=== PATIENT | male | born 1970 | race African-American/Black ===

== ENCOUNTER 2016-09-04 14:08 | Inpatient (IN) ==
[2016-09-04] MEDS ORDERED: NS 1,000 ML IV ONE (14:20)
[2016-09-04] MEDS ORDERED: BOOSTRIX VACCINE IM ONE (14:25)
[2016-09-04 14:30] LABS: MANUAL DIFF NEEDED? NO
[2016-09-04 14:32] LABS: BASO% 0.5 % (0.0-0.8); EOS# 0.07 X1000 (0.0-0.7); EOS% 1.1 % (0.0-10.0); HEMATOCRIT 38.6 % (42.0-52.0); HEMOGLOBIN 12.9 g/dL (14.0-18.0); LYMPH# 2.28 X1000 (1.2-3.4); LYMPH% 35.7 % (20.5-51.1); MCH 30.1 PG (27-31); MCHC 33.4 g/dL (33-37); MONO# 0.71 X1000 (0.11-0.59); MONO% 11.1 % (1.7-9.3); MPV 11.5 FL (7.4-10.4); NEUT% 51.6 % (42.2-75.2); PLT 195 X1000 (130-400); RBC 4.29 XMIL (4.7-6.1)
[2016-09-04] MEDS ORDERED: ATIVAN IV ONE ×2 (14:42→15:22)
[2016-09-04 14:52] LABS: INR 1.27; PROTIME 13.5 Seconds (9.2-11.7)
[2016-09-04 15:05] LABS: ALLEN TEST YES; BE -2.3 mmoll (-3.0-3.0); BLOOD TYPE ARTERIAL; DRAW SITE R RADIAL; O2(CT) 14.5 mL/dL (15.0-23.0); PCO2(98.6) 30 mmHg (35-45); PO2(98.6) 68 mmHg (60-100); SAMPLE BLOOD; SAO2 96.3 % (95.0-100.0); THB 11.2 g/dL (11.5-17.4); pH(98.6) 7.45 (7.35-7.45)
[2016-09-04 15:07] LABS: MODALITY ROOM AIR
--- NOTE | 2016-09-04 15:09 | Diag Imaging Result Doc PS360 ---
EXAM: CHEST-PORTABLE HISTORY: AMS TECHNIQUE: Portable upright AP COMPARISON: 04/20/2016 FINDINGS: The lungs are well expanded. The heart is not enlarged. No pneumonia. No pleural effusions identified. The vessels are not distended. IMPRESSION: Negative chest Electronically signed by Danny Valdes 09/04/2016 3:07 PM
[2016-09-04 15:11] LABS: PTT 83.7 Seconds (22.0-36.0)
[2016-09-04 15:20] LABS: AGAP 31; ALBUMIN 4.4 g/dL (3.5-5.0); ALKALINE PHOSPHATASE 125 U/L (32-122); BUN 8 mg/dL (8-22); CALCIUM 9.3 mg/dL (8.8-10.2); CHLORIDE 93 mmol/L (98-107); CK PROFILE 332 U/L (24-204); COSMO 274; GOT 253 U/L (10-34); GPT 133 U/L (10-44); POTASSIUM 3.4 mmol/L (3.5-5.1); SODIUM 138 mmol/L (136-145); TCO2 14 mmol/L (25-35); TOTAL PROTEIN 9.7 g/dL (6.3-8.3)
[2016-09-04 15:43] LABS: CK INDEX 0.5 (0.0-2.5)
[2016-09-04] MEDS ORDERED: M.V.I.-12 10 ML, FOLIC ACID 1 MG, MAGNESIUM SULFATE 1 GM, THIAMINE 100 MG in NS 1,000 ML IV ONE (16:31)
[2016-09-04 16:46] LABS: URINE CULTURE NEEDED? NO; URINE MICRO REVIEW NEEDED? NO; URINE SOURCE CLEAN CATCH
--- NOTE | 2016-09-04 16:53 | Diag Imaging Result Doc PS360 ---
EXAM: HEAD/C-SPINE W/O CONTRAST HISTORY: Fall TECHNIQUE: COMPARISON: None. FINDINGS: Head: Motion degrades image quality. No parenchymal hemorrhage. No epidural or subdural hematoma. No subarachnoid hemorrhage. No skull fracture. No hydrocephalus. No sinus opacification. Cervical spine: There is a large amount of motion and the exam is extremely suboptimal. There are degenerative changes in the mid and lower cervical spine. There is reversal of the normal curvature. No precervical soft tissue swelling. No fracture is identified. IMPRESSION: A large amount of motion degrades image quality. No injury to the head or cervical spine identified. Electronically signed by Danny Valdes 09/04/2016 4:51 PM
[2016-09-04 16:54] LABS: BILIRUBIN URINE NEGATIVE (NEGATIVE); BLOOD URINE SMALL (NEGATIVE); COLOR YELLOW; GLUCOSE URINE NEGATIVE (NEGATIVE); LEUKOCYTES URINE NEGATIVE (NEGATIVE); NITRITE URINE NEGATIVE (NEGATIVE); PH URINE 6.5; PROTEIN URINE 50 mg/dL (NEGATIVE); SP GRAVITY URINE 1.018; TURBIDITY URINE CLEAR (CLEAR); UR EPITHELIAL CELLS <10 /HPF (<10); URINE BACTERIA NEGATIVE /HPF; URINE RBC <10 /HPF (<10); URINE WBC <10 /HPF (<10); UROBILINOGEN URINE 8 mg/dL (NORMAL)
--- NOTE | 2016-09-04 16:57 | PROVIDER DOCUMENTATION ---
This chart was entered by Analia Tony Scribe, acting as scribe for Antonio Matias MD. HPI-Head Injury - General Chief Complaint: Head Injury Stated Complaint: Syncope Time Seen by Provider: 09/04/16 14:12 Source: patient, EMS Allergies/Adverse Reactions: Patient Allergies Allergy/AdvReac Type Severity Reaction Status Date / Time No Known Allergies Allergy Verified 09/04/16 14:21 Home Medications: Home Medication List Medication Instructions Recorded Confirmed Last Taken Type NK [No Home Medications] 09/04/16 09/04/16 Unknown History - History of Present Illness-Head Injury Nature of Presenting Problem: 46 yo M presents to the ER with complaint of syncopal episode where he fell and hit hit head on a glass table. EMS reports pt lying on back on the floor, then noted seizure like activity, denies any post-ictal phase. Pt has some minor puncture wounds to L side of head. Pt denies any pain. Other injuries associated with incident:: reports: head Quality of Pain: reports: none Onset/Duration: reports: just prior to arrival Method of Injury: reports: fell (syncope) Injury Associated Symptoms: reports: puncture wound Locality of Occurance: Home Review of Systems - Adult - REVIEW OF SYSTEMS - ADULT Constitutional: denies: chills, fever Eyes: reports: no symptoms reported Ears, Nose, Mouth & Throat: reports: no symptoms reported Cardiovascular: denies: chest pain, palpitations Respiratory: denies: cough, shortness of breath Gastrointestinal: reports: no symptoms reported Genitourinary: reports: no symptoms reported Musculoskeletal: reports: no symptoms reported Integumentary: reports: no symptoms reported Neurological: reports: syncope, tremors Psychiatric: reports: no symptoms reported Endocrine: reports: no symptoms reported Hematologic/Lymphatic: reports: no symptoms reported Allergic/Immunologic: reports: no symptoms reported All Other Systems: Reviewed and Negative Past History - Adult - PAST MEDICAL HISTORY-ADULT Review of Records: reports: Nursing Assessment Review, Medications Reviewed Respiratory: reports: asthma - PRIOR SURGERIES/PROCEDURES Surgical/Procedure History: reports: none - IMMUNIZATION STATUS Childhood Immunizations: See Nurse Assessment Flu Vaccine: See Nurse Assessment - SOCIAL HISTORY Smoking: cigarettes Provider spent 3-5 mins advising pt. on dangers of tobacco.: Discussed manners to quit use, and f/u contacts for add'l counseling. Physical Exam- Neurological - Physical Exam-Neuro Initial Vital Signs Reviewed: Yes General Appearance: alert, no apparent distress Eye Exam: bilateral eye: normal inspection, PERRL, EOMI HENMT: normocephalic/atraumatic, normal ENT inspection, TMs normal, pharynx normal Head Injury: other (minor puncture wounds to L side of head). 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4 H Plt Count 195 MPV 11.5 H Immature Gran % (Auto) 0.0 Neut % (Auto) 51.6 Lymph % (Auto) 35.7 Chester % (Auto) 11.1 H Eos % (Auto) 1.1 Baso % (Auto) 0.5 Immature Gran # (Auto) 0.00 Neut # (Auto) 3.30 Lymph # (Auto) 2.28 Chester # (Auto) 0.71 H Eos # (Auto) 0.07 Baso # (Auto) 0.03 PT INR PTT (Actin FS) Specimen Type Sample Site pH pCO2 pO2 HCO3 Base Excess Oxyhemoglobin ABG O2 Sat (Calculated) ABG O2 Saturation ABG Carboxyhemoglobin ABG Methemoglobin Ghassan Test A-a O2 Difference Total Hemoglobin Lactate Blood Gas Modality FiO2 % Sodium 138 Potassium 3.4 L Chloride 93 L Carbon Dioxide 14 L Anion Gap 31 BUN 8 Creatinine 1.0 Estimated GFR/1.73 m2 > 60 BUN/Creatinine Ratio 8 Glucose 105 H Calculated Osmolality 274 Calcium 9.3 Total Bilirubin 0.70 AST 253 H ALT 133 H Alkaline Phosphatase 125 H Creatine Kinase 332 H Creatine Kinase Index 0.5 CK-MB (CK-2) 1.60 Troponin T Total Protein 9.7 H Albumin 4.4 Globulin 5.3 Albumin/Globulin Ratio 0.8 Urine Source Plasma/Serum Ethyl Alc 29 H 09/04/16 09/04/16 09/04/16 14:00 14:00 14:55 WBC RBC Hgb Hct MCV MCH MCHC RDW Std Deviation Plt Count MPV Immature Gran % (Auto) Neut % (Auto) Lymph % (Auto) Chester % (Auto) Eos % (Auto) Baso % (Auto) Immature Gran # (Auto) Neut # (Auto) Lymph # (Auto) Chester # (Auto) Eos # (Auto) Baso # (Auto) PT 13.5 H INR 1.27 PTT (Actin FS) 83.7 H Specimen Type ARTERIAL Sample Site R RADIAL pH 7.45 pCO2 30 L pO2 68 HCO3 23.0 Base Excess -2.3 Oxyhemoglobin 91.7 L ABG O2 Sat (Calculated) 14.5 L ABG O2 Saturation 96.3 ABG Carboxyhemoglobin 3.70 H ABG Methemoglobin 1.0 Ghassan Test YES A-a O2 Difference 44.0 Total Hemoglobin 11.2 L Lactate 5.40 H* Blood Gas Modality ROOM AIR FiO2 % 21.0 Sodium Potassium Chloride Carbon Dioxide Anion Gap BUN Creatinine Estimated GFR/1.73 m2 BUN/Creatinine Ratio Glucose Calculated Osmolality Calcium Total Bilirubin AST ALT Alkaline Phosphatase Creatine Kinase Creatine Kinase Index CK-MB (CK-2) Troponin T < 0.010 Total Protein Albumin Globulin Albumin/Globulin Ratio Urine Source Plasma/Serum Ethyl Alc 09/04/16 16:40 WBC RBC Hgb Hct MCV MCH MCHC RDW Std Deviation Plt Count MPV Immature Gran % (Auto) Neut % (Auto) Lymph % (Auto) Chester % (Auto) Eos % (Auto) Baso % (Auto) Immature Gran # (Auto) Neut # (Auto) Lymph # (Auto) Chester # (Auto) Eos # (Auto) Baso # (Auto) PT INR PTT (Actin FS) Specimen Type Sample Site pH pCO2 pO2 HCO3 Base Excess Oxyhemoglobin ABG O2 Sat (Calculated) ABG O2 Saturation ABG Carboxyhemoglobin ABG Methemoglobin Ghassan Test A-a O2 Difference Total Hemoglobin Lactate Blood Gas Modality FiO2 % Sodium Potassium Chloride Carbon Dioxide Anion Gap BUN Creatinine Estimated GFR/1.73 m2 BUN/Creatinine Ratio Glucose Calculated Osmolality Calcium Total Bilirubin AST ALT Alkaline Phosphatase Creatine Kinase Creatine Kinase Index CK-MB (CK-2) Troponin T Total Protein Albumin Globulin Albumin/Globulin Ratio Urine Source CLEAN CATCH Plasma/Serum Ethyl Alc Orders Category Date Time Status Cardiac Monitoring DIRECTED Care 09/04/16 14:20 Active Finger Stick Blood Sugar (ED) DIRECTED Care 09/04/16 14:20 Active [place]ay Cath Insertion ORDERED Care 09/04/16 16:47 Active Saline Loc NOW Care 09/04/16 14:20 Active Wound Care DIRECTED Care 09/04/16 14:25 Active CHEST-PORTABLE [RAD] Stat Exams 09/04/16 14:20 Completed HEAD/C-SPINE W/O CONTRAST [CT] Stat Exams 09/04/16 14:24 Taken ABG [RESP] Routine Lab 09/04/16 14:55 Completed CBC WITH ELECTRONIC DIFF [HEME] Stat Lab 09/04/16 14:00 Completed CK PROFILE [SP CHEM] Stat Lab 09/04/16 14:00 Completed COMPREHENSIVE METABOLIC PANEL [CHEM] Stat Lab 09/04/16 14:00 Completed ETOH [ALCOHOL BLOOD] Stat Lab 09/04/16 14:00 Completed PROTIME WITH INR [COAG] Stat Lab 09/04/16 14:00 Completed PTT [COAG] Stat Lab 09/04/16 14:00 Completed TROPONIN T Stat Lab 09/04/16 14:00 Completed URINALYSIS W/POSS RFLX CULT-1 [URINALYSIS] Stat Lab 09/04/16 16:40 Results URINE DRUG SCREEN Stat Lab 09/04/16 16:40 Received 0.9% Sodium Chloride Inj [Ns] 1,000 ml Med 09/04/16 14:20 Discontinued IV 999 mls/hr Diph,Pertuss(Acell),Tet Vac/Pf [Boostrix Vaccine] Med 09/04/16 14:25 Discontinued 0.5 ml IM .ONCE ONE Lorazepam [Ativan] Med 09/04/16 14:42 Discontinued 1 mg IV NOW ONE Lorazepam [Ativan] Med 09/04/16 15:22 Discontinued 1 mg IV NOW ONE Mvi [M.v.i.-12] 10 ml Med 09/04/16 16:31 Active Folic Acid 1 mg Magnesium Sulfate 1 gm Thiamine 100 mg 0.9% Sodium Chloride Inj [Ns] 1,000 ml IV NOW Pulse Oximetry Stat Oth 09/04/16 14:20 Active EKG [EKG] Stat Ther 09/04/16 14:20 Ordered Result Diagrams: 09/04/16 14:00 09/04/16 14:00 - REASSESSMENT Reassessment #1 Time Reassessed: 16:51 Status: improving (Pt is still shaking after 2mg of Ativan IV. Family reports he drinks ETOH every day for 20 years and his last drinking was a couple of day ago. Pt had foma in his mouth in his mouth when he fell and hit his head on a table. There is a concern for ETOH withdraw caused seizure.) - EKG 1 Time of EKG reading by physician:: 14:07 EKG Read and Signed by:: Antonio Matias EKG Interpretation (*Must complete 3 of following elements*): Abnormal Rate: 119 Rhythm: sinus tach with short [place] Lucas: normal [place] Interval: shortened ST Wave: non-specific ST changes - XRAY 1 XRAY Study: Chest Impression: Normal (negative chest, per radiologist) - CONSULTS/PCP/HOSPITALIST Notification #1 *Consult/PCP/Hospitalist*: Hopsitalist Time Discussed: 16:53 Consult Disposition: Admit Departure - Departure Date of Disposition Decision: 09/04/16 Time of Disposition Decision: 16:55 DIAGNOSIS: Alcohol withdrawal, Seizure, Head injury Disposition: ADMITTED INPATIENT 09 Certified Medical Emergency: Emergent Condition: Stable - Critical Care Note This patient required my direct & personal management of CC.: No This chart was documented by the indicated scribe, (Analia Tony Scribe) and accurately reflects the services I performed and decisions made by me, Antonio Matias MD, as attested by the provider's signature.
[2016-09-04 17:00] LABS: UR AMPHETAMINES QUAL NONE DETECTED (NONE DETECT); UR BARBITUATES QUAL NONE DETECTED (NONE DETECT); UR BENZODIAZEPIN QUAL NONE DETECTED (NONE DETECT); UR CANNABINOIDS QUAL NONE DETECTED (NONE DETECT); UR COCAINE QUAL NONE DETECTED (NONE DETECT); UR METHADONE QUAL NONE DETECTED (NONE DETECT); UR OPIATES QUAL NONE DETECTED (NONE DETECT); UR OXYCODONE QUAL NONE DETECTED (NONE DETECT); UR PCP QUAL NONE DETECTED (NONE DETECT)
[2016-09-04] MEDS ORDERED: ZOFRAN IV PRN (18:13)
[2016-09-04] MEDS ORDERED: TYLENOL PO PRN (18:13)
--- NOTE | 2016-09-04 18:26 | HISTORY AND PHYSICAL ---
PRIMARY CARE PHYSICIAN: None. CHIEF COMPLAINT: Patient was found unresponsive, seizing. HISTORY OF PRESENT ILLNESS: This is a 46-year-old male with a history of alcoholism, who was brought to the emergency department because he was found seizing. Patient not able to provide any more information and there is no family in the room. Apparently as per ER records, patient was found unresponsive, having a seizure so he was brought immediately to the emergency department. Here he was he was given Lorazepam and the seizure was controlled. According to the ER doctor apparently this patient is a heavy drinker. The last time he had a drink was 2 days ago. The patient is going to be admitted to the hospital for further evaluation and treatment for suspicion for alcohol withdrawal. PAST MEDICAL HISTORY: Unremarkable. PAST SURGICAL HISTORY: None. ALLERGIES: Patient is not allergic to anything. SOCIAL HISTORY: Patient has been a drinker for a while. He does not remember exactly how long he has been drinking but he reports that he drinks between 6 and 10 beers daily. He reports smoking between half and 1 pack per day for many years. He denies using any kind of drugs, although he reports that sometimes he smokes some weed. He lives with his son, who is a 17-year-old. REVIEW OF SYSTEMS: Not possible to obtain because of the mental status of the patient. PHYSICAL EXAMINATION: VITAL SIGNS: Temperature 98.9 degrees, heart rate 99, respiratory rate 24, blood pressure 126/96, O2 saturation 97% on room air. GENERAL: This is a 46-year-old male, looking definitely older than his age, lying in bed, in no acute distress. HEENT: Head is normocephalic, atraumatic. Anicteric sclerae and pale conjunctivae. Mucous membranes dry with some gingival hemorrhage. NECK: Supple. No JVD noted. No carotid bruits. No lymphadenopathy. No thyromegaly. CARDIOVASCULAR: S1, S2 heard. Tachycardic. No murmurs, gallops, or rubs. Regular rate and rhythm. RESPIRATORY: Clear bilaterally to auscultation. No work of breathing or using accessory muscles. ABDOMEN: Soft, nontender to palpation. Bowel sounds present. No organomegaly. No signs of peritoneal irritation. NEUROLOGICAL: The patient is confused but oriented in person. Moves 4 extremities spontaneously. LABORATORY DATA: White cell count 6.39, hemoglobin 12.9, hematocrit 38.6, platelets 195,000. INR is 1.27. ABG showing a pH of 7.45, pCO2 30, PO2 68, lactate 5.4. BMP unremarkable. AST 253, AST 133, alkaline phosphatase 125. UDS reports an alcohol of 29. ASSESSMENT AND PLAN: 1. Toxic encephalopathy. 2. Alcohol withdrawal. 3. Chronic alcohol abuse. PLAN: The patient is being admitted to the hospital because of suspicion for alcohol withdrawal with episode of seizure. The patient reports he had this problem before. We actually do not know if this patient had this problem before because he is not a good historian right now. In any case, we are going to transfer him to the intensive care unit. We are going to start him on Lorazepam IV p.r.n. seizures. At this point because this patient is not completely with it, we think that this patient is not a candidate for any oral medication. We will provide also IV fluid supplementation with thiamine and folate. We will see how this patient does tomorrow. Further recommendations to follow according to the clinical situation of the patient. cc: Silvestre Perez MD
[2016-09-04] MEDS: NS 1,000 ML IV SCH (20:06)
[2016-09-04] MEDS: PROTONIX IV SCH (20:07)
[2016-09-04] MEDS: ATIVAN IV PRN (20:15)
[2016-09-04 20:28] LABS: MANUAL DIFF NEEDED? NO
[2016-09-04 20:45] LABS: BASO% 0.6 % (0.0-0.8); EOS# 0.04 X1000 (0.0-0.7); EOS% 0.8 % (0.0-10.0); HEMATOCRIT 31.7 % (42.0-52.0); HEMOGLOBIN 10.8 g/dL (14.0-18.0); LYMPH# 1.21 X1000 (1.2-3.4); LYMPH% 25.1 % (20.5-51.1); MCH 29.9 PG (27-31); MCHC 34.1 g/dL (33-37); MCV 87.8 FL (81-99); MONO# 0.57 X1000 (0.11-0.59); MONO% 11.8 % (1.7-9.3); MPV 10.7 FL (7.4-10.4); NEUT% 61.7 % (42.2-75.2); PLT 127 X1000 (130-400); RBC 3.61 XMIL (4.7-6.1)
[2016-09-04 20:54] LABS: INR 1.26; PROTIME 13.4 Seconds (9.2-11.7)
[2016-09-04 21:02] LABS: AGAP 14; ALBUMIN 3.4 g/dL (3.5-5.0); ALKALINE PHOSPHATASE 96 U/L (32-122); BUN 7 mg/dL (8-22); CALCIUM 8.4 mg/dL (8.8-10.2); CHLORIDE 101 mmol/L (98-107); COSMO 275; GOT 174 U/L (10-34); GPT 94 U/L (10-44); POTASSIUM 3.7 mmol/L (3.5-5.1); SODIUM 139 mmol/L (136-145); TCO2 24 mmol/L (25-35); TOTAL PROTEIN 7.6 g/dL (6.3-8.3)
[2016-09-04 21:05] LABS: PTT 73.8 Seconds (22.0-36.0)
[2016-09-04 21:31] LABS: CK PROFILE 433 U/L (24-204)
[2016-09-04 21:49] LABS: CK INDEX 0.4 (0.0-2.5); CK-MB 1.88 ng/mL (0.0-5.0)
[2016-09-05] MEDS: NS 1,000 ML IV SCH ×3 (03:26→17:20)
[2016-09-05] MEDS: ATIVAN IV PRN ×4 (04:33→20:19)
[2016-09-05 05:04] LABS: ALLEN TEST YES; BE -2.3 mmoll (-3.0-3.0); BLOOD TYPE ARTERIAL; DRAW SITE R RADIAL; METHB 0.6 % (0.0-1.5); O2(CT) 15.4 mL/dL (15.0-23.0); PCO2(98.6) 30 mmHg (35-45); PO2(98.6) 130 mmHg (60-100); SAMPLE BLOOD; SAO2 99.6 % (95.0-100.0); THB 11.1 g/dL (11.5-17.4); pH(98.6) 7.45 (7.35-7.45)
[2016-09-05 05:05] LABS: MODALITY ROOM AIR
[2016-09-05 05:19] LABS: MANUAL DIFF NEEDED? NO
[2016-09-05 05:27] LABS: BASO% 0.8 % (0.0-0.8); EOS# 0.11 X1000 (0.0-0.7); EOS% 2.2 % (0.0-10.0); HEMATOCRIT 31.8 % (42.0-52.0); HEMOGLOBIN 10.7 g/dL (14.0-18.0); LYMPH# 1.28 X1000 (1.2-3.4); LYMPH% 25.8 % (20.5-51.1); MCH 29.7 PG (27-31); MCHC 33.6 g/dL (33-37); MCV 88.3 FL (81-99); MONO# 0.48 X1000 (0.11-0.59); MONO% 9.7 % (1.7-9.3); MPV 11.4 FL (7.4-10.4); NEUT% 61.5 % (42.2-75.2); PLT 126 X1000 (130-400)
[2016-09-05 06:07] LABS: AGAP 15; ALBUMIN 3.1 g/dL (3.5-5.0); ALKALINE PHOSPHATASE 89 U/L (32-122); BUN 7 mg/dL (8-22); CALCIUM 8.2 mg/dL (8.8-10.2); CHLORIDE 102 mmol/L (98-107); COSMO 271; GOT 146 U/L (10-34); GPT 81 U/L (10-44); POTASSIUM 3.7 mmol/L (3.5-5.1); SODIUM 137 mmol/L (136-145); TCO2 20 mmol/L (25-35); TOTAL BILIRUBIN 0.97 mg/dL (0.20-1.00); TOTAL PROTEIN 7.2 g/dL (6.3-8.3)
--- NOTE | 2016-09-05 07:00 | EKG Report ---
Test Performed on : 09/04/2016 2:07:32 PM Test Reason : re-ordered Blood Pressure : / mmHG Vent. Rate : 119 BPM Atrial Rate : 119 BPM P-R Int : 098 ms QRS Dur : 066 ms QT Int : 308 ms P-R-T Axes : -02 023 -14 degrees QTc Int : 433 ms Sinus tachycardia. with short NV Nonspecific T wave abnormality Abnormal ECG No previous ECGs available Unconfirmed Result
--- NOTE | 2016-09-05 08:53 | Diag Imaging Result Doc PS360 ---
EXAM: US ABDOMEN-COMPLETE HISTORY: alcohol abuse TECHNIQUE: Transabdominal COMMENT: The liver is somewhat hyperechoic and the pancreas hypoechoic. The possibility of pancreatitis cannot be excluded. There is no evidence of biliary dilatation the common bile duct measuring 5 mm. The gallbladder is clear and nontender. There is antegrade flow in the portal vein. The spleen is not enlarged. The kidneys are without evidence of hydronephrosis or mass. The aorta and inferior vena cava are within normal limits. IMPRESSION: Possibility of pancreatitis cannot be excluded. Hepatic steatosis. Electronically signed by Dajuan Paige 09/05/2016 8:50 AM
[2016-09-05] MEDS: PROTONIX IV SCH ×2 (09:16→20:19)
[2016-09-05] MEDS: SODIUM CHLORIDE 0.9% INJ SCH ×2 (09:16→20:18)
--- NOTE | 2016-09-05 11:14 | PROGRESS NOTE ---
DATE: 09/05/2016 SUBJECTIVE: Patient reports feeling fine. He does not remember what happened. He denies any episodes of alcohol withdrawal before. OBJECTIVE: Vital Signs: Temperature 100.2, heart rate 82, respiratory rate 22, blood pressure 143/80, O2 saturation 96% on room air. General Examination: This is a 46-year-old, male, lying in bed, in no acute distress. HEENT: Head is normocephalic and atraumatic. Anicteric sclerae and pale conjunctivae. Mucous membranes moist. Neck: Supple. No JVD noted. No carotid bruits. No lymphadenopathy. No thyromegaly. Cardiovascular Examination: S1 and S2 heard. No murmur, gallops, or rubs. Regular rate and rhythm. Respiratory Examination: Clear bilaterally to auscultation. No work of breathing or using accessory muscles. Abdomen: Soft, nontender to palpation. Bowel sounds present. No organomegaly. Extremities: No clubbing, cyanosis, or edema. Peripheral pulses present in both legs. Neurological Examination: Patient is alert and oriented x3. Able to move 4 extremities. Cranial nerves 2-12 grossly normal. Laboratory Data: Reviewed. ASSESSMENT: 1. Toxic encephalopathy. 2. Alcohol withdrawal. 3. Chronic alcohol use. PLAN: Patient has been admitted to the hospital because he was found unresponsive and having seizure activity. He reports that he drinks alcohol daily and the last time that he drank alcohol was 2 days from the time that he was admitted to the hospital. Alcohol level was 26 in the ER so he was sent to the intensive care unit. He was started on Ativan p.r.n. So far since admission, he has received 2 doses of Ativan. Mental status is getting better. At this time, my plan is to start a regular diet, continue with Ativan p.r.n., and start also baclofen for alcohol withdrawal. We are going to transfer this patient to the regular floor. We will continue with seizure precautions. If tomorrow, the labs are okay and patient is alert and oriented x3, and also not requiring any Ativan IV, I think it would be safe to send him home. Today, he spiked a temperature. A blood culture has been ordered since admission. I just ordered a urine culture as well, although this patient is not complaining of any burning on urination. In any case, we will keep an eye on the results of those blood cultures. cc: Silvestre Perez MD
[2016-09-05] MEDS: LIORESAL PO SCH ×2 (13:06→17:17)
[2016-09-05] MEDS ORDERED: GEODON ONE (13:16)
[2016-09-05] MEDS: GEODON IM PRN (13:23)
[2016-09-05] MEDS: THIAMINE 100 MG in NS 50 ML IV SCH (17:16)
[2016-09-05] MEDS: FOLIC ACID 1 MG in NS 50.0 ML IV SCH (17:17)
[2016-09-06] MEDS: GEODON IM PRN ×2 (00:24→18:05)
[2016-09-06] MEDS: STERILE WATER INJ. INJ PRN ×2 (00:24→18:05)
[2016-09-06] MEDS: NS 1,000 ML IV SCH ×3 (02:22→13:14)
[2016-09-06] MEDS: ATIVAN IV PRN ×5 (05:20→22:13)
[2016-09-06] MEDS ORDERED: PHENOBARBITAL IV ONE (06:05)
[2016-09-06] MEDS ORDERED: BEER PO ONE (06:05)
[2016-09-06] MEDS: VALIUM IV SCH ×2 (06:12→06:39)
[2016-09-06 06:52] LABS: MANUAL DIFF NEEDED? NO
[2016-09-06 07:53] LABS: BASO% 0.3 % (0.0-0.8); EOS# 0.11 X1000 (0.0-0.7); EOS% 1.8 % (0.0-10.0); HEMATOCRIT 33.2 % (42.0-52.0); HEMOGLOBIN 11.5 g/dL (14.0-18.0); LYMPH# 0.96 X1000 (1.2-3.4); LYMPH% 15.7 % (20.5-51.1); MCH 30.3 PG (27-31); MCHC 34.6 g/dL (33-37); MCV 87.6 FL (81-99); MONO# 0.44 X1000 (0.11-0.59); MONO% 7.2 % (1.7-9.3); MPV 10.7 FL (7.4-10.4); PLT 129 X1000 (130-400); RBC 3.79 XMIL (4.7-6.1)
[2016-09-06 08:21] LABS: AGAP 20; ALBUMIN 3.3 g/dL (3.5-5.0); ALKALINE PHOSPHATASE 87 U/L (32-122); BUN 4 mg/dL (8-22); CALCIUM 8.1 mg/dL (8.8-10.2); CHLORIDE 98 mmol/L (98-107); COSMO 266; GOT 105 U/L (10-34); GPT 60 U/L (10-44); POTASSIUM 2.9 mmol/L (3.5-5.1); SODIUM 135 mmol/L (136-145); TCO2 17 mmol/L (25-35); TOTAL BILIRUBIN 0.71 mg/dL (0.20-1.00); TOTAL PROTEIN 7.3 g/dL (6.3-8.3)
[2016-09-06] MEDS: SODIUM CHLORIDE 0.9% INJ SCH ×2 (08:56→20:35)
[2016-09-06] MEDS: PROTONIX IV SCH ×2 (08:56→20:35)
[2016-09-06] MEDS: LIORESAL PO SCH ×3 (09:00→16:13)
[2016-09-06] MEDS ORDERED: POTASSIUM CHLORIDE 60 MEQ in NS 500 ML IV ONE (11:30)
[2016-09-06] MEDS: COREG PO SCH ×2 (16:13→20:35)
[2016-09-06] MEDS: APRESOLINE PO SCH ×3 (16:13→20:38)
[2016-09-06] MEDS: FOLIC ACID 1 MG in NS 50.0 ML IV SCH (17:13)
[2016-09-06] MEDS: THIAMINE 100 MG in NS 50 ML IV SCH (17:13)
--- NOTE | 2016-09-06 17:30 | PROGRESS NOTE ---
DATE: 09/06/2016 SUBJECTIVE: The patient is currently in 4 point restraints. He has been having issues with agitation today and required Ativan and Geodon to be given. The patient remains confused. OBJECTIVE: Vital Signs: Temperature 100.1 degrees, blood pressure 159/100, respiratory rate 116, respirations 27, O2 saturations 98% on room air. General: This is an elderly male lying in bed in no acute distress. Head: Normocephalic, atraumatic. Heart: S1, S2. Normal. Regular rate and rhythm. Lungs: Clear to auscultation bilaterally. No wheezing. No rales. No rhonchi. Abdomen: Positive bowel sounds. Soft, nontender, nondistended. Extremities: No edema. No cyanosis. No calf tenderness. Neurologic: The patient is awake and does follow commands but has periods of agitation. LABS: White blood cell count 6.1, hemoglobin 11, hematocrit 33, platelets 129,000. Sodium 135, potassium 2.9, chloride 98, CO2 17, BUN 4, creatinine 0.6, glucose 81, AST 105, ALT 60, alkaline phosphatase 87, albumin 3.3. ASSESSMENT AND PLAN: 1. Acute alcohol withdrawal. Will continue on Ativan as needed. Will add a multivitamin supplementation. 2. Alcoholic hepatitis. Slowly improving. 3. Hypertension. Will start the patient on antihypertensive therapy. 4. Severe alcohol abuse. Will discuss the possibility of treatment with the patient once he is medically stable. 5. Deep vein thrombosis prophylaxis. Will start the patient on SCDs. 6. Gastrointestinal prophylaxis. Continue on IV Protonix. cc: Marissa Terrell MD
[2016-09-07] MEDS: GEODON IM PRN (03:29)
[2016-09-07] MEDS: STERILE WATER INJ. INJ PRN (03:29)
[2016-09-07] MEDS: ATIVAN IV PRN ×2 (04:24→08:26)
[2016-09-07] MEDS ORDERED: APRESOLINE IV PRN (05:28)
[2016-09-07] MEDS: APRESOLINE PO SCH ×3 (07:09→20:19)
[2016-09-07 08:16] LABS: MANUAL DIFF NEEDED? NO
[2016-09-07 08:21] LABS: BASO% 0.3 % (0.0-0.8); EOS# 0.07 X1000 (0.0-0.7); HEMATOCRIT 33.7 % (42.0-52.0); HEMOGLOBIN 11.5 g/dL (14.0-18.0); LYMPH# 0.81 X1000 (1.2-3.4); MCH 30.2 PG (27-31); MCHC 34.1 g/dL (33-37); MCV 88.5 FL (81-99); MONO# 0.69 X1000 (0.11-0.59); MONO% 10.2 % (1.7-9.3); MPV 10.8 FL (7.4-10.4); NEUT% 76.5 % (42.2-75.2); PLT 151 X1000 (130-400); RBC 3.81 XMIL (4.7-6.1)
[2016-09-07] MEDS: PROTONIX IV SCH ×2 (08:26→20:19)
[2016-09-07] MEDS: LIORESAL PO SCH ×4 (08:26→18:26)
[2016-09-07] MEDS: COREG PO SCH (08:26)
[2016-09-07] MEDS: NS 1,000 ML IV SCH ×4 (08:26→18:31)
[2016-09-07 08:52] LABS: AGAP 23; ALBUMIN 3.2 g/dL (3.5-5.0); ALKALINE PHOSPHATASE 86 U/L (32-122); BUN 6 mg/dL (8-22); CALCIUM 8.4 mg/dL (8.8-10.2); CHLORIDE 99 mmol/L (98-107); COSMO 267; GOT 134 U/L (10-34); GPT 62 U/L (10-44); POTASSIUM 3.6 mmol/L (3.5-5.1); SODIUM 135 mmol/L (136-145); TCO2 13 mmol/L (25-35); TOTAL BILIRUBIN 0.67 mg/dL (0.20-1.00); TOTAL PROTEIN 7.4 g/dL (6.3-8.3)
[2016-09-07 11:27] LABS: HEPATITIS PROFILE ACUTE SEE COMMENTS
[2016-09-07] MEDS ORDERED: BLISTEX MEDICATED BERRY LIP BALM TOP ONE (12:12)
[2016-09-07] MEDS ORDERED: CATAPRES-TTS-1 TD SCH (14:00)
[2016-09-07] MEDS: FOLIC ACID 1 MG in NS 50.0 ML IV SCH (16:02)
[2016-09-07] MEDS: THIAMINE 100 MG in NS 50 ML IV SCH (17:01)
--- NOTE | 2016-09-07 17:22 | PROGRESS NOTE ---
DATE: 09/07/2016 SUBJECTIVE: The patient is resting comfortably in bed. He does have periods of agitation. OBJECTIVE: Vital Signs: Temperature 98.5 degrees, blood pressure 168/87, heart rate 92, respirations 17, O2 saturations 99% on room air. General: This is an elderly male, lying in bed, in no acute distress. Head: Normocephalic atraumatic. Heart: S1, S2. Normal. Regular rate and rhythm. Lungs: Clear to auscultation bilaterally. No wheezing. No rales. No rhonchi. Abdomen: Positive bowel sounds. Soft, nontender, nondistended. Extremities: No edema. No cyanosis. No calf tenderness. Neurologic: The patient is awake but does have periods of confusion. LABS: White blood cell count 6.7, hemoglobin 11, hematocrit 33, platelets 151,000. Sodium 135, potassium 3.6, chloride 99, CO2 13, BUN 6, creatinine 0.6, glucose 92. AST 134, ALT 62, alkaline phosphatase 86. ASSESSMENT AND PLAN: 1. Alcohol withdrawal. Continue on p.r.n. Ativan. 2. Uncontrolled hypertension. We will adjust the patient's antihypertensives. Continue on the clonidine patch plus scheduled hydralazine. 3. Alcoholic hepatitis. Continue to monitor the patient's LFTs closely. 4. Metabolic acidosis. We will start the patient on sodium bicarbonate tablets. 5. Severe alcohol abuse. Aware. 6. Gastrointestinal prophylaxis. Continue on IV Protonix. 7. Deep vein thrombosis prophylaxis. We will start the patient on Lovenox. cc: Marissa Terrell MD
[2016-09-07] MEDS: LOPRESSOR IV SCH ×2 (17:57→23:10)
[2016-09-07] MEDS: SODIUM CHLORIDE 0.9% INJ SCH (20:19)
[2016-09-07] MEDS: LOVENOX SUBQ SCH (20:19)
[2016-09-07] MEDS: SODIUM BICARBONATE PO SCH (20:19)
[2016-09-08] MEDS: NS 1,000 ML IV SCH ×2 (03:10→03:42)
[2016-09-08 04:01] LABS: ALLEN TEST YES; BE -1.1 mmoll (-3.0-3.0); BLOOD TYPE ARTERIAL; DRAW SITE R RADIAL; METHB 1.3 % (0.0-1.5); O2(CT) 15.4 mL/dL (15.0-23.0); PCO2(98.6) 28 mmHg (35-45); PO2(98.6) 79 mmHg (60-100); SAMPLE BLOOD; THB 11.5 g/dL (11.5-17.4); pH(98.6) 7.49 (7.35-7.45)
[2016-09-08 04:02] LABS: MODALITY ROOM AIR
[2016-09-08] MEDS: APRESOLINE PO SCH ×3 (04:27→21:38)
[2016-09-08] MEDS: LOPRESSOR IV SCH ×2 (05:07→12:13)
[2016-09-08 05:45] LABS: MANUAL DIFF NEEDED? NO
[2016-09-08 05:55] LABS: BASO% 0.5 % (0.0-0.8); EOS# 0.27 X1000 (0.0-0.7); EOS% 4.7 % (0.0-10.0); HEMATOCRIT 31.8 % (42.0-52.0); HEMOGLOBIN 10.9 g/dL (14.0-18.0); LYMPH# 1.21 X1000 (1.2-3.4); LYMPH% 21.1 % (20.5-51.1); MCHC 34.3 g/dL (33-37); MCV 87.6 FL (81-99); MONO# 0.78 X1000 (0.11-0.59); MONO% 13.6 % (1.7-9.3); MPV 11.4 FL (7.4-10.4); NEUT% 60.1 % (42.2-75.2); PLT 161 X1000 (130-400); RBC 3.63 XMIL (4.7-6.1)
[2016-09-08 06:14] LABS: AGAP 18; ALBUMIN 2.7 g/dL (3.5-5.0); ALKALINE PHOSPHATASE 73 U/L (32-122); BUN 6 mg/dL (8-22); CALCIUM 8.4 mg/dL (8.8-10.2); CHLORIDE 101 mmol/L (98-107); COSMO 271; GOT 127 U/L (10-34); GPT 52 U/L (10-44); SODIUM 137 mmol/L (136-145); TCO2 18 mmol/L (25-35); TOTAL BILIRUBIN 0.72 mg/dL (0.20-1.00); TOTAL PROTEIN 6.5 g/dL (6.3-8.3)
--- NOTE | 2016-09-08 07:26 | Diag Imaging Result Doc PS360 ---
EXAM: CHEST-PORTABLE HISTORY: dyspnea TECHNIQUE: AP portable chest at 0500 COMMENT: Considering differences in projection, there has been no significant change since 09/04/2016. IMPRESSION: Stable chest. Electronically signed by Dajuan Paige 09/08/2016 7:23 AM
[2016-09-08] MEDS: LIORESAL PO SCH ×3 (08:39→17:05)
[2016-09-08] MEDS: PROTONIX IV SCH ×2 (08:39→21:38)
[2016-09-08] MEDS: SODIUM BICARBONATE PO SCH ×2 (08:39→21:38)
--- NOTE | 2016-09-08 18:41 | PROGRESS NOTE ---
DATE: 09/08/2016 SUBJECTIVE: The patient is resting in bed. He is more awake and alert. He even got up and walked with physical therapy today. OBJECTIVE: Vital Signs: Temperature 98.7, blood pressure 136/94, heart rate 65. O2 saturation 96% on room air. General: This is an elderly male, lying in bed, in no acute distress. Head: Normocephalic, atraumatic. Heart: S1, S2 normal. Regular rate and rhythm. Lungs: Clear to auscultation bilaterally. No crackles. No rales. No wheezing. Abdomen: Positive bowel sounds. Soft, nontender, nondistended. Extremities: No edema. No cyanosis. No calf tenderness. Neurologic: The patient is alert and oriented x3. No focal neurologic deficits noted. LABORATORY: White blood cell count 5.7, hemoglobin 10, hematocrit 31, platelets 161,000. Sodium 137, potassium 4, chloride 101, CO2 18, BUN 6, creatinine 0.8. Glucose 9. AST 127, ALT 52, alkaline phosphatase 73. Albumin 2.7. ASSESSMENT AND PLAN: 1. Alcohol withdrawal. Improved. The patient is more awake and alert today. 2. Hypertension. We will continue to adjust the patient's antihypertensive therapy. Continue on hydralazine. We will also add Lopressor. 3. Alcoholic hepatitis. We will continue to monitor this closely for improvement. 4. Heavy alcohol abuse. The patient was counseled about alcohol cessation. The patient stated that he would have to think about whether he would be interested in going for treatment for his alcoholism. 5. Metabolic acidosis. Improved. Continue on sodium bicarbonate tablets. 6. Gastrointestinal prophylaxis. Continue on IV Protonix. 7. Deep venous thrombosis prophylaxis. Continue on Lovenox. 8. Disposition. The patient will be discharged home tomorrow. cc: Marissa Terrell MD MTDD
[2016-09-08] MEDS: LOVENOX SUBQ SCH (21:38)
[2016-09-08] MEDS: SODIUM CHLORIDE 0.9% INJ SCH (21:38)
[2016-09-08] MEDS: LOPRESSOR PO SCH (21:38)
[2016-09-09] MEDS: APRESOLINE PO SCH (04:25)
[2016-09-09 05:41] LABS: MANUAL DIFF NEEDED? NO
[2016-09-09 05:49] LABS: BASO% 0.9 % (0.0-0.8); EOS# 0.21 X1000 (0.0-0.7); EOS% 3.9 % (0.0-10.0); HEMOGLOBIN 10.5 g/dL (14.0-18.0); LYMPH# 1.56 X1000 (1.2-3.4); LYMPH% 29.2 % (20.5-51.1); MCH 30.6 PG (27-31); MCV 87.5 FL (81-99); MONO% 18.7 % (1.7-9.3); MPV 10.5 FL (7.4-10.4); NEUT% 47.3 % (42.2-75.2); PLT 185 X1000 (130-400); RBC 3.43 XMIL (4.7-6.1)
[2016-09-09 06:31] LABS: AGAP 13; ALKALINE PHOSPHATASE 68 U/L (32-122); BUN 6 mg/dL (8-22); CALCIUM 8.9 mg/dL (8.8-10.2); CHLORIDE 101 mmol/L (98-107); COSMO 272; GOT 123 U/L (10-34); GPT 53 U/L (10-44); POTASSIUM 3.3 mmol/L (3.5-5.1); SODIUM 137 mmol/L (136-145); TCO2 23 mmol/L (25-35); TOTAL BILIRUBIN 0.68 mg/dL (0.20-1.00); TOTAL PROTEIN 6.7 g/dL (6.3-8.3)
[2016-09-09] MEDS ORDERED: KLOR-CON PO ONE (08:46)
[2016-09-09] MEDS ORDERED: THERA M PLUS PO SCH (09:00)
[2016-09-09] MEDS: LOPRESSOR PO SCH (09:40)
[2016-09-09] MEDS: SODIUM BICARBONATE PO SCH (09:40)
[2016-09-09] MEDS: PROTONIX IV SCH (09:40)
[2016-09-09] MEDS: LIORESAL PO SCH (09:40)
[2016-09-09 11:45] VITALS: BP 111/42
--- NOTE | 2016-09-09 14:12 | DISCHARGE SUMMARY ---
ADMISSION DATE: 09/04/2016 DISCHARGE DATE: 09/09/2016 CONSULTATIONS: None. PERTINENT PROCEDURES: 1. Head cervical spine CT showed a large amount of motion, degraded image quality. No injury to the head or cervical spine identified. 2. Abdominal ultrasound showed possibility of pancreatitis, could not be excluded, hepatic steatosis. DISCHARGE DIAGNOSES: 1. Alcohol withdrawal 2. Hypertension 3. Alcoholic hepatitis 4. Heavy alcohol abuse 5. Metabolic acidosis HOSPITAL COURSE: Mr. Zamudio is a 46-year-old male with a history of alcoholism who was brought to the ED because he was found seizing. Patient was not able to provide any information at the time of his admission. There was also no family present. Per the ED records he was found unresponsive having a seizure, so he was immediately brought to the ED. He was given some Ativan and the seizure was controlled. According to the ER doc, the patient was a heavy drinker, and the last time he had a drink was 2 days prior to his admission. He was admitted for toxic encephalopathy secondary to alcohol withdrawal. He was transferred to the ICU, started on Ativan IV p.r.n. for seizures, started on IV fluids, a banana bag, thiamine and folate , monitored closely for DTs. He did report drinking alcohol daily. Again the last time he drank was 2 days prior to his admission. His alcohol level was 26 in the ER. His mental status has improved. He was started on a regular diet. Was started on baclofen for alcohol withdrawal. He was transferred to a regular floor, continued on seizure precautions as well as p.r.n. Ativan. Patient did spike a temperature. His urine culture was negative. His blood cultures were negative. Chest x-ray was negative. No complaints of dysuria, no chills. No cough. The patient was monitored for a couple more days. He has gotten up and walked with physical therapy. He was educated about alcohol cessation as well as treatment options. However, he stated that he would have to think whether he would be interested in going for treatment for his alcoholism. The patient has stabilized. He is appropriate for discharge home today. DISCHARGE MEDICATIONS: 1. As per Dr. Terrell. Apresoline 25 mg p.o. q.8 hours. 2. Lopressor 50 mg p.o. b.i.d. 3. Thera N Plus 1 each p.o. daily. DISCHARGE DIET: Regular. DISPOSITION: Patient is being discharged home with self care. The patient again has been educated about alcohol cessation and he stated that he would have to really consider whether he would want to seek treatment for his alcoholism. The patient can return to the ED for any worsening of symptoms. DISCHARGE TIME: 30 minutes. Dictated by ALESSANDRA Walden for Marissa Terrell MD cc: Marissa Terrell MD MTDD
== END 2016-09-09 11:58 | disposition home or self-care (01) ==
LOC: ED 14:08 → ICU 17:43 → SUATTDRO 17:43 → 4N 09-09 01:15
PROVIDERS: ATTEND Internal Medicine